=== PATIENT | male | born 1935 | race Caucasian/White ===

== ENCOUNTER 2017-05-31 14:33 | Inpatient (IN) | payer MEDICARE ==
[~2017-05-31] VITALS: Ht 172.7 cm; Wt 81.7 kg
[2017-05-31 14:37] VITALS: BP 155/68; PULSE 51; RESP 14; TEMP 98.2; O2SAT 95
[2017-05-31] MEDS ORDERED: SODIUM CHLORIDE 0.9% FLUSH 10 ML FLUSH IVF PRN (15:00)
--- NOTE | 2017-05-31 15:12 | RADRPT ---
EXAM DATE/TIME: 05/31/2017 15:00 [facility] COMPARISON: No previous studies available for comparison. INDICATIONS : Cough and dizziness. MEDICAL HISTORY : Hypertension. SURGICAL HISTORY : CABG. ENCOUNTER: Initial ACUITY: 3 days PAIN SCORE: 0/10 LOCATION: Bilateral chest FINDINGS: Questionable minimal left lung base atelectasis and/or infiltrate is seen. There is no appreciable p leural effusion for technique. Heart and mediastinum are unremarkable. There is evidence for prior median sternotomy. CONCLUSION: Questionable minimal left lung base atelectasis and/or infiltrate. Sukhi Merlos MD on May 31, 2017 at 15:08 Board Certified Radiologist. This report was verified electronically.
[2017-05-31 15:26] LABS: AUTOMATED NEUTROPHIL # 7.3 TH/MM3 (1.8-7.7); BASOPHIL % 0.4 % (0.0-2.0); EOSINOPHIL # 0.1 TH/MM3 (0-0.4); EOSINOPHIL % 1.1 % (0.0-4.0); HEMATOCRIT 43.3 % (39.0-51.0); LYMPH % 13.8 % (9.0-44.0); LYMPHOCYTE # 1.3 TH/MM3 (1.0-4.8); MEAN CORPUSCULAR HGB CONC 34.7 % (32.0-36.0); MEAN PLATELET VOLUME 9.4 FL (7.0-11.0); MONO % 8.7 % (0.0-8.0); MONOCYTE # 0.8 TH/MM3 (0-0.9); PLATELET COUNT 288 TH/MM3 (150-450); RED BLOOD COUNT 4.56 MIL/MM3 (4.50-5.90); WHITE BLOOD COUNT 9.7 TH/MM3 (4.0-11.0)
--- NOTE | 2017-05-31 15:26 | PD ---
HPI Chief Complaint: Neuro Symptoms/ Deficits Time Seen by Provider: 14:47 Travel History International Travel<30 days: No Contact w/Intl Traveler<30days: No Traveled to known affect area: No History of Present Illness HPI 82 year old male presents to the emergency department for evaluation of an episode of dizziness and confusion that occurred this morning. According to family at bedside as well as the patient, he woke up around 6:30 this morning and felt dizzy. He states that he felt lightheaded. His states that his legs were weak and he had trouble standing. He then laid back down and woke up again around 7:30. His states that he started messing with the sheets and said that she told him to change the sheets, which she did not. She states that he went to the living room and sat down and looked "dazed" but would answer questions appropriately. The patient denies any symptoms at this time. No headache. No fevers or chills. No chest pain or shortness of breath. No abdominal pain. Do not take, vomiting, diarrhea. No weakness or syncope. Apparently, he took Tamiflu last week to prevent the flu after being exposed to. He was on a Z-Bobby for bronchitis which he took his last dose today. Moderate severity. No exacerbating or alleviating factors. PFSH Past Medical History Atrial Fibrillation: Yes High Cholesterol: Yes Genitourinary: Yes (BPH ) Hypertension: Yes Influenza Vaccination: Yes Past Surgical History Coronary Artery Bypass Graft: Yes (X 2 ) Eye Surgery: Yes (BILATERAL CATARACTS) Social History Alcohol Use: Yes (VODKA DAILY) Tobacco Use: No (QUIT 26 YEARS AGO) Substance Use: No Allergies-Medications (Allergen,Severity, Reaction): Coded Allergies: No Known Allergies (Unverified , 05/31/17) Review of Systems Except as stated in HPI: all other systems reviewed are Neg Physical Exam Narrative GENERAL: Well-nourished, well-developed elderly male patient, afebrile. Patient is alert and oriented to person, place, time. SKIN: Focused skin assessment warm/dry. HEAD: Normocephalic. Atraumatic. ENT: Mucosa pink and moist. No erythema or exudates. No uvular edema. No uvular , palatal, or tonsillar deviation. Airway patent. Nasal turbinates appear normal without nasal blood, purulent drainage or septal hematoma. Bilateral tympanic membranes are clear without erythema or perforation. EYES: No scleral icterus. No injection or drainage. PERRLA. EOM intact. NECK: Supple, trachea midline. No JVD or lymphadenopathy. CARDIOVASCULAR: Regular rate and rhythm without murmurs, gallops, or rubs. Bilateral radial and pedal pulses are 2+. RESPIRATORY: Breath sounds equal bilaterally. No accessory muscle use. Lungs sounds are clear to auscultation. GASTROINTESTINAL: Abdomen soft, non-tender, nondistended. MUSCULOSKELETAL: No cyanosis, or edema. Bilateral upper and lower extremity strength 5/5. All extremities are neurovascularly intact. BACK: Nontender without obvious deformity. No CVA tenderness. NEUROLOGICAL: Awake and alert. Cranial nerves II through XII intact. Motor and sensory grossly within normal limits. Five out of 5 muscle strength in all muscle groups. Normal speech. Finger to nose is normal bilaterally. Heel-to- boles is normal bilaterally. Data Data Last Documented VS Vital Signs Date Time Temp Pulse Resp B/P (MAP) Pulse Ox O2 Delivery O2 Flow Rate FiO2 05/31/17 15:00 Room Air 05/31/17 14:37 98.2 51 14 155/68 (97) 95 Orders Orders Electrocardiogram (05/31/17 14:55) Prothrombin Time / Inr (Pt) (05/31/17 14:55) Act Partial Throm Time (Ptt) (05/31/17 14:55) Complete Blood Count With Diff (05/31/17 14:55) Comprehensive Metabolic Panel (05/31/17 14:55) Urinalysis - C+S If Indicated (05/31/17 14:55) Ct Brain W/O Iv Contrast(Rout) (05/31/17 14:55) Chest, Single Ap (05/31/17 14:55) Ecg Monitoring (05/31/17 14:55) Iv Access Insert/Monitor (05/31/17 14:55) Oximetry (05/31/17 14:55) Sodium Chloride 0.9% Flush (Ns Flush) (05/31/17 15:00) Magnesium (Mg) (05/31/17 14:55) Influenzae A/B Antigen (05/31/17 16:23) Azithromycin Inj (Zithromax Inj) (05/31/17 16:30) Ceftriaxone Inj (Rocephin Inj) (05/31/17 16:30) Admit Order (Ed Use Only) (05/31/17 16:29) Labs Laboratory Tests Test 05/31/17 15:08 05/31/17 16:10 White Blood Count 9.7 TH/MM3 Red Blood Count 4.56 MIL/MM3 Hemoglobin 15.0 GM/DL Hematocrit 43.3 % Mean Corpuscular Volume 95.0 FL Mean Corpuscular Hemoglobin 33.0 PG Mean Corpuscular Hemoglobin Concent 34.7 % Red Cell Distribution Width 13.0 % Platelet Count 288 TH/MM3 Mean Platelet Volume 9.4 FL Neutrophils (%) (Auto) 76.0 % Lymphocytes (%) (Auto) 13.8 % Monocytes (%) (Auto) 8.7 % Eosinophils (%) (Auto) 1.1 % Basophils (%) (Auto) 0.4 % Neutrophils # (Auto) 7.3 TH/MM3 Lymphocytes # (Auto) 1.3 TH/MM3 Monocytes # (Auto) 0.8 TH/MM3 Eosinophils # (Auto) 0.1 TH/MM3 Basophils # (Auto) 0.0 TH/MM3 CBC Comment DIFF FINAL Differential Comment Prothrombin Time 10.7 SEC Prothromb Time International Ratio 1.1 RATIO Activated Partial Thromboplast Time 29.7 SEC Blood Urea Nitrogen 14 MG/DL Creatinine 0.83 MG/DL Random Glucose 103 MG/DL Total Protein 7.5 GM/DL Albumin 3.4 GM/DL Calcium Level 8.5 MG/DL Magnesium Level 2.1 MG/DL Alkaline Phosphatase 87 U/L Aspartate Amino Transf (AST/SGOT) 15 U/L Alanine Aminotransferase (ALT/SGPT) 18 U/L Total Bilirubin 0.6 MG/DL Sodium Level 139 MEQ/L Potassium Level 4.1 MEQ/L Chloride Level 107 MEQ/L Carbon Dioxide Level 26.8 MEQ/L Anion Gap 5 MEQ/L Estimat Glomerular Filtration Rate 89 ML/MIN Urine Color YELLOW Urine Turbidity CLEAR Urine pH 5.5 Urine Specific [place] 1.028 Urine Protein TRACE mg/dL Urine Glucose (UA) NEG mg/dL Urine Ketones 10 mg/dL Urine Occult Blood NEG Urine Nitrite NEG Urine Bilirubin NEG Urine Urobilinogen LESS THAN 2.0 MG/DL Urine Leukocyte Esterase NEG Urine RBC 1 /hpf Urine WBC 1 /hpf Urine Mucus FEW /lpf Microscopic Urinalysis Comment CATH-CULT NOT IND MDM Medical Decision Making Medical Screen Exam Complete: Yes Emergency Medical Condition: Yes Medical Record Reviewed: Yes Interpretation(s) chest x-ray - CONCLUSION: Questionable minimal left lung base atelectasis and/or infiltrate. CT brain - CONCLUSION: Slight atrophic and small vessel ischemic changes without any evidence for acute hemorrhage or mass effect. Differential Diagnosis Vertigo versus TIA versus electrolyte abnormality versus intracranial abnormality versus pneumonia Narrative Course 82-year-old male presents to the emergency department for evaluation of a episode of dizziness and confusion this morning. EKG shows sinus bradycardia, heart rate 53, prolonged QT interval. CBC, CMP, magnesium, PTT, PT/INR, UA, CT of the brain, chest x-ray are ordered and pending. CBC shows no acute abnormality. CMP is unremarkable. Magnesium is 2.1. Coags are unremarkable. UA [-]. CT of the brain shows slight atrophic and small vessel ischemic changes without any evidence for acute hemorrhage or mass effect.. Chest x-ray shows questionable minimal left lung base atelectasis and/ or infiltrate. Patient is given azithromycin 500mg IV, Rocephin 1 gm IV for possible pneumonia. Family is insistent that patient is not acting himself and is not at his baseline. They are concerned of TIA. My attending physician, Dr. Elam, examined patient as well and recommends admission. Dr. Thurman accepted admission. Diagnosis Primary Impression: Altered mental status Qualified Codes: R41.82 - Altered mental status, unspecified Admitting Information Admitting Physician Requests: Trisha Osborn May 31, 2017 15:26
--- NOTE | 2017-05-31 15:29 | RADRPT ---
EXAM DATE/TIME: 05/31/2017 15:09 [facility] COMPARISON: No previous studies available for comparison. INDICATIONS : Dizziness and confusion today. RADIATION DOSE: 56.35 CTDIvol (mGy) MEDICAL HISTORY : None SURGICAL HISTORY : None. ENCOUNTER: Initial ACUITY: 1 day PAIN SCALE: 0/10 LOCATION: Bilateral head TECHNIQUE: Multiple contiguous axial images were obtained of the head. Using automated exposure control and adj ustment of the mA and/or kV according to patient size, radiation dose was kept as low as reasonably a chievable to obtain optimal diagnostic quality images. DICOM format image data is available electro nically for review and comparison. FINDINGS: There is no evidence for intracranial hemorrhage, mass effect, mass lesions, or edema. The visualize d bony structures appear intact. Slight degree of brain atrophy is seen. Slight periventricular whit e matter changes are seen nonspecific mostly consistent with chronic small vessel ischemic changes. There are no signs of acute infarction for technique. CONCLUSION: Slight atrophic and small vessel ischemic changes without any evidence for acute hemorrhage or mass effect. Sukhi Merlos MD on May 31, 2017 at 15:25 Board Certified Radiologist. This report was verified electronically.
[2017-05-31 15:38] LABS: INTERNATIONAL NORMALIZED RATIO 1.1 RATIO; PROTHROMBIN TIME - PATIENT 10.7 SEC (9.8-11.6)
[2017-05-31 15:47] LABS: ALBUMIN 3.4 GM/DL (3.4-5.0); ALT (GPT) 18 U/L (12-78); AST (GOT) 15 U/L (15-37); BICARBONATE 26.8 MEQ/L (21.0-32.0); BLOOD UREA NITROGEN 14 MG/DL (7-18); CALCIUM 8.5 MG/DL (8.5-10.1); CHLORIDE 107 MEQ/L (98-107); CREATININE 0.83 MG/DL (0.60-1.30); GLOMERULAR FILTRATION RATE 89 ML/MIN (>89); GLUCOSE,RANDOM 103 MG/DL (74-106); MAGNESIUM 2.1 MG/DL (1.5-2.5); SODIUM (NA) 139 MEQ/L (136-145)
[2017-05-31 15:49] LABS: ALKALINE PHOSPHATASE 87 U/L (45-117); TOTAL BILIRUBIN ADULT 0.6 MG/DL (0.2-1.0); TOTAL PROTEIN 7.5 GM/DL (6.4-8.2)
--- NOTE | 2017-05-31 16:09 | PD ---
Physical Exam Narrative I, Dr. Elam, have reviewed the advance practice practitioner's documentation and am in agreement, met with the patient face to face, made the diagnosis, and the medical decision making was done by me. *My assessment and Findings: 82yo M brought here by family for confusion. said he was pulling the sheets and not acting like himself. Labs reviewed, no leukocytosis. H/H normal. CMP unremarkable. CXR showed questionable minimal left lung base. Atelectasis and/or infiltrate. Pt have been coughing so will cover with antibiotics. CT brain showed slight atrophic and small vessel ischemic changes without any evidence for acute hemorrhage or mass effect. Pt is AAOx3 but still not back to baseline as per family. Will admit for altered mental status workup. Data Data Last Documented VS Vital Signs Date Time Temp Pulse Resp B/P (MAP) Pulse Ox O2 Delivery O2 Flow Rate FiO2 05/31/17 15:00 Room Air 05/31/17 14:37 98.2 51 14 155/68 (97) 95 Orders Orders Electrocardiogram (05/31/17 14:55) Prothrombin Time / Inr (Pt) (05/31/17 14:55) Act Partial Throm Time (Ptt) (05/31/17 14:55) Complete Blood Count With Diff (05/31/17 14:55) Comprehensive Metabolic Panel (05/31/17 14:55) Urinalysis - C+S If Indicated (05/31/17 14:55) Ct Brain W/O Iv Contrast(Rout) (05/31/17 14:55) Chest, Single Ap (05/31/17 14:55) Ecg Monitoring (05/31/17 14:55) Iv Access Insert/Monitor (05/31/17 14:55) Oximetry (05/31/17 14:55) Sodium Chloride 0.9% Flush (Ns Flush) (05/31/17 15:00) Magnesium (Mg) (05/31/17 14:55) Influenzae A/B Antigen (05/31/17 16:23) Azithromycin Inj (Zithromax Inj) (05/31/17 16:30) Ceftriaxone Inj (Rocephin Inj) (05/31/17 16:30) Admit Order (Ed Use Only) (05/31/17 16:29) Labs Laboratory Tests Test 05/31/17 15:08 05/31/17 16:10 White Blood Count 9.7 TH/MM3 Red Blood Count 4.56 MIL/MM3 Hemoglobin 15.0 GM/DL Hematocrit 43.3 % Mean Corpuscular Volume 95.0 FL Mean Corpuscular Hemoglobin 33.0 PG Mean Corpuscular Hemoglobin Concent 34.7 % Red Cell Distribution Width 13.0 % Platelet Count 288 TH/MM3 Mean Platelet Volume 9.4 FL Neutrophils (%) (Auto) 76.0 % Lymphocytes (%) (Auto) 13.8 % Monocytes (%) (Auto) 8.7 % Eosinophils (%) (Auto) 1.1 % Basophils (%) (Auto) 0.4 % Neutrophils # (Auto) 7.3 TH/MM3 Lymphocytes # (Auto) 1.3 TH/MM3 Monocytes # (Auto) 0.8 TH/MM3 Eosinophils # (Auto) 0.1 TH/MM3 Basophils # (Auto) 0.0 TH/MM3 CBC Comment DIFF FINAL Differential Comment Prothrombin Time 10.7 SEC Prothromb Time International Ratio 1.1 RATIO Activated Partial Thromboplast Time 29.7 SEC Blood Urea Nitrogen 14 MG/DL Creatinine 0.83 MG/DL Random Glucose 103 MG/DL Total Protein 7.5 GM/DL Albumin 3.4 GM/DL Calcium Level 8.5 MG/DL Magnesium Level 2.1 MG/DL Alkaline Phosphatase 87 U/L Aspartate Amino Transf (AST/SGOT) 15 U/L Alanine Aminotransferase (ALT/SGPT) 18 U/L Total Bilirubin 0.6 MG/DL Sodium Level 139 MEQ/L Potassium Level 4.1 MEQ/L Chloride Level 107 MEQ/L Carbon Dioxide Level 26.8 MEQ/L Anion Gap 5 MEQ/L Estimat Glomerular Filtration Rate 89 ML/MIN Urine Color YELLOW Urine Turbidity CLEAR Urine pH 5.5 Urine Specific [place] 1.028 Urine Protein TRACE mg/dL Urine Glucose (UA) NEG mg/dL Urine Ketones 10 mg/dL Urine Occult Blood NEG Urine Nitrite NEG Urine Bilirubin NEG Urine Urobilinogen LESS THAN 2.0 MG/DL Urine Leukocyte Esterase NEG Urine RBC 1 /hpf Urine WBC 1 /hpf Urine Mucus FEW /lpf Microscopic Urinalysis Comment CATH-CULT NOT IND MDM Supervised Visit with HARJIT: Yes Interpretation(s) EKG: Sinus bradycardia at 53bpm. Normal axis. QTc mildly prolong at 488ms. TWI V2. Diagnosis Primary Impression: Altered mental status Qualified Codes: R41.82 - Altered mental status, unspecified Admitting Information Admitting Physician Requests: Janna Khalil DO May 31, 2017 16:09
[2017-05-31 16:29] LABS: BILIRUBIN, URINE NEG (NEG); BLOOD, URINE NEG (NEG); GLUCOSE,URINE NEG (NEG); KETONE, URINE 10 mg/dL (NEG); MUCUS URINE FEW /lpf (OCC); NITRITE,URINE NEG (NEG); PH, URINE 5.5 (5.0-8.5); URINE COLOR YELLOW (YELLW/STRAW); URINE LEUKOCYTE ESTERASE NEG (NEG)
[2017-05-31] MEDS ORDERED: cefTRIAXone INJ 1,000 MG in SODIUM CHLORIDE 0.9% INJ 100 ML IV ONE (16:30)
[2017-05-31] MEDS ORDERED: AZITHROMYCIN INJ 500 MG in SODIUM CHLOR 0.9% 250 ML INJ 250 ML IV ONE (16:30)
[2017-05-31] MEDS ORDERED: SODIUM CHLOR 0.9% 1000 ML INJ 1,000 ML IV ONE (17:15)
--- NOTE | 2017-05-31 17:43 | HHI.HP ---
[facility] Colt Rachel MD Admission Diagnosis AMS Diagnoses: (1) Altered mental status Diagnosis: Principal Chief Complaint: altered mental status Travel History International Travel<30 Days: No Contact w/Intl Traveler <30 Da: No Traveled to Known Affected Are: No History of Present Illness 82 year old male with history of CAD, hypertension presents to the emergency department for evaluation of an episode of dizziness and confusion that occurred this morning. According to family at bedside as well as the patient, he woke up around 6:30 this morning and felt dizzy. He states that he felt lightheaded. His states that his legs were weak and he had trouble standing. He then laid back down and woke up again around 7:30. His states that he started messing with the sheets and said that she told him to change the sheets, which she did not. the family say that he was recently diagnosed with the flu and just finished the course of Zithromax today. he denies any fever or chills but per the family he hasn't been eating well the past few days.there's no report of focal weakness, slurred speech or headache. Review of Systems Constitutional: DENIES: Fever, Weight loss, Chills, Night Sweats Eyes: DENIES: Blurred vision, Diplopia, Vision loss, Double Vision Ears, nose, mouth, throat: DENIES: Tinnitus, Vertigo, Throat pain, Epistaxis Respiratory: DENIES: Apneas, Cough, Snoring, Wheezing, Hemoptysis, Sputum production, Shortness of breath Cardiovascular: DENIES: Chest pain, Palpitations, Syncope, Dyspnea on Exertion , PND, Lower Extremity Edema, Orthopnea, Claudication Gastrointestinal: DENIES: Abdominal pain, Black stools, Bloody stools, Constipation, Diarrhea, Nausea, Vomiting, Difficulty Swallowing, Anorexia Genitourinary: DENIES: Urinary frequency, Urgency, Hematuria, Dysuria Musculoskeletal: DENIES: Joint pain, Muscle aches, Stiffness, Joint Swelling Integumentary: DENIES: Rash Neurologic: COMPLAINS OF: Abnormal gait, DENIES: Headache, Localized weakness, Paresthesias, Seizures, Speech Problems, Tremor, Poor Balance Psychiatric: COMPLAINS OF: Confusion, DENIES: Anxiety, Mood changes, Depression , Hallucinations, Agitation, Suicidal Ideation, Homicidal Ideation, Delusions Past Family Social History Past Medical History CAD/ hypertension/ dyslipidemia Past Surgical History CABG Reported Medications aspirin/metoprolol/statin/benazepril Allergies: Coded Allergies: No Known Allergies (Unverified , 05/31/17) Active Ordered Medications Inpatient Medications Azithromycin 500 mg/Sodium Chloride 250 ml @ 250 mls/hr ONCE ONCE IV ; Start 05/31/17 at 16:30; Stop 05/31/17 at 17:29 Ceftriaxone Sodium 1000 mg/ Sodium Chloride 100 ml @ 200 mls/hr ONCE ONCE IV Last administered on 05/31/17at 16:50; Start 05/31/17 at 16:30; Stop 05/31/17 at 16: 59; Status DC Sodium Chloride (NS Flush) 2 ml UNSCH PRN IVF FLUSH AFTER USING IV ACCESS; Start 05/31/17 at 15:00 Social History doesn't smoke. drinks occasionally. Physical Exam Vital Signs Vital Signs Date Time Temp Pulse Resp B/P (MAP) Pulse Ox O2 Delivery O2 Flow Rate FiO2 05/31/17 15:00 Room Air 05/31/17 14:37 98.2 51 14 155/68 (97) 95 Room Air Physical Exam GENERAL: This is a well-nourished, well-developed patient, in no apparent distress. SKIN: No rashes, ecchymoses or lesions. Cool and dry. HEAD: Atraumatic. Normocephalic. No temporal or scalp tenderness. EYES: Pupils equal round and reactive. Extraocular motions intact. No scleral icterus. No injection or drainage. ENT: Nose without bleeding, purulent drainage or septal hematoma. Throat without erythema, tonsillar hypertrophy or exudate. Uvula midline. Airway patent. NECK: Trachea midline. No JVD or lymphadenopathy. Supple, nontender, no meningeal signs. CARDIOVASCULAR: Regular rate and rhythm without murmurs, gallops, or rubs. RESPIRATORY: Clear to auscultation. Breath sounds equal bilaterally. No wheezes , rales, or rhonchi. GASTROINTESTINAL: Abdomen soft, non-tender, nondistended. No hepato-splenomegaly , or palpable masses. No guarding. MUSCULOSKELETAL: Extremities without clubbing, cyanosis, or edema. No joint tenderness, effusion, or edema noted. No calf tenderness. Negative Homans sign bilaterally. NEUROLOGICAL: Awake and alert. Cranial nerves II through XII intact. Motor and sensory grossly within normal limits. Five out of 5 muscle strength in all muscle groups. Normal speech. Laboratory Laboratory Tests Test 05/31/17 15:08 05/31/17 16:10 White Blood Count 9.7 Red Blood Count 4.56 Hemoglobin 15.0 Hematocrit 43.3 Mean Corpuscular Volume 95.0 Mean Corpuscular Hemoglobin 33.0 Mean Corpuscular Hemoglobin Concent 34.7 Red Cell Distribution Width 13.0 Platelet Count 288 Mean Platelet Volume 9.4 Neutrophils (%) (Auto) 76.0 Lymphocytes (%) (Auto) 13.8 Monocytes (%) (Auto) 8.7 Eosinophils (%) (Auto) 1.1 Basophils (%) (Auto) 0.4 Neutrophils # (Auto) 7.3 Lymphocytes # (Auto) 1.3 Monocytes # (Auto) 0.8 Eosinophils # (Auto) 0.1 Basophils # (Auto) 0.0 CBC Comment DIFF FINAL Differential Comment Prothrombin Time 10.7 Prothromb Time International Ratio 1.1 Activated Partial Thromboplast Time 29.7 Blood Urea Nitrogen 14 Creatinine 0.83 Random Glucose 103 Total Protein 7.5 Albumin 3.4 Calcium Level 8.5 Magnesium Level 2.1 Alkaline Phosphatase 87 Aspartate Amino Transf (AST/SGOT) 15 Alanine Aminotransferase (ALT/SGPT) 18 Total Bilirubin 0.6 Sodium Level 139 Potassium Level 4.1 Chloride Level 107 Carbon Dioxide Level 26.8 Anion Gap 5 Estimat Glomerular Filtration Rate 89 Urine Color YELLOW Urine Turbidity CLEAR Urine pH 5.5 Urine Specific [place] 1.028 Urine Protein TRACE Urine Glucose (UA) NEG Urine Ketones 10 Urine Occult Blood NEG Urine Nitrite NEG Urine Bilirubin NEG Urine Urobilinogen LESS THAN 2.0 Urine Leukocyte Esterase NEG Urine RBC 1 Urine WBC 1 Urine Mucus FEW Microscopic Urinalysis Comment CATH-CULT NOT IND Date/Time Source Procedure Growth Status 05/31/17 16:30 Nasal Aspirate Influenza Types A,B Antigen (JUAN CARLOS) - Final NEGATIVE FOR FLU A AND B ANTIGEN.... Complete Result Diagram: 05/31/17 1508 05/31/17 1508 Imaging Last Impressions Head CT 05/31/17 8225 Signed Impressions: Service Date/Time: Wednesday, May 31, 2017 15:09 - CONCLUSION: Slight atrophic and small vessel ischemic changes without any evidence for acute hemorrhage or mass effect. Sukhi Merlos MD Chest X-Ray 05/31/17 1455 Signed Impressions: Service Date/Time: Wednesday, May 31, 2017 15:00 - CONCLUSION: Questionable minimal left lung base atelectasis and/or infiltrate. Sukhi Merlos MD Caprini VTE Risk Assessment Caprini VTE Risk Assessment: Mod/High Risk (score >= 2) Caprini Risk Assessment Model Point Value = 1 Point Value = 2 Point Value = 3 Point Value = 5 Age 41-60 Minor surgery BMI > 25 kg/m2 Swollen legs Varicose veins or History of unexplained or recurrent spontaneous Oral contraceptives or hormone replacement Sepsis (< 1 month) Serious lung disease, including pneumonia (< 1 month) Abnormal pulmonary function Acute myocardial infarction Congestive heart failure (< 1 month) History of inflammatory bowel disease Medical patient at bed rest Age 61-74 Arthroscopic surgery Major open surgery (> 45 min) Laparoscopic surgery (> 45 min) Malignancy Confined to bed (> 72 hours) Immobilizing plaster cast Central venous access Age >= 75 History of VTE Family history of VTE Factor V Leiden Prothrombin [id number] Lupus anticoagulant Anticardiolipin antibodies Elevated serum homocysteine Heparin-induced thrombocytopenia Other congenital or acquired thrombophilia Stroke (< 1 month) Elective arthroplasty Hip, pelvis, or leg fracture Acute spinal cord injury (< 1 month) Prophylaxis Regimen Total Risk Factor Score Risk Level Prophylaxis Regimen 0-1 Low Early ambulation 2 Moderate Order ONE of the following: *Sequential Compression Device (SCD) *Heparin 5000 units SQ BID 3-4 Higher Order ONE of the following medications: *Heparin 5000 units SQ TID *Enoxaparin/Lovenox 40 mg SQ daily (WT < 150 kg, CrCl > 30 mL/min) *Enoxaparin/Lovenox 30 mg SQ daily (WT < 150 kg, CrCl > 10-29 mL/min) *Enoxaparin/Lovenox 30 mg SQ BID (WT < 150 kg, CrCl > 30 mL/min) AND/OR *Sequential Compression Device (SCD) 5 or more Highest Order ONE of the following medications: *Heparin 5000 units SQ TID (Preferred with Epidurals) *Enoxaparin/Lovenox 40 mg SQ daily (WT < 150 kg, CrCl > 30 mL/min) *Enoxaparin/Lovenox 30 mg SQ daily (WT < 150 kg, CrCl > 10-29 mL/min) *Enoxaparin/Lovenox 30 mg SQ BID (WT < 150 kg, CrCl > 30 mL/min) AND *Sequential Compression Device (SCD) Assessment and Plan Assessment and Plan A/P - acute encephalopathy/ generalized weakness likely due to dehydration CT head with no acute abnormality. continue with IV fluid . monitor on telemetry- check the carotid doppler. consult PT. -questionable LLL infiltrate- continue IV Rocephin- oxygen and neb treatment as needed. -CAD- s/p CABG; continue aspirin and metoprolol- will verify and resume the rest of home meds . -hypertension; resume metoprolol- will monitor and adjust the regimen as needed. -DVT prophylaxis with subq Lovenox. Discussed Condition With ER physician, the patient and his family. Problem Qualifiers (1) Altered mental status: Qualified Codes: R41.82 - Altered mental status, unspecified Brooke Rojas MD May 31, 2017 17:43
[2017-05-31] MEDS ORDERED: RESP: ALBUTEROL 1.25 MG/3 ML NEB (PRN) NEB (17:45)
[2017-05-31] MEDS ORDERED: METO50TA PO (18:25)
[2017-05-31] MEDS ORDERED: BENZ100 PO (18:25)
[2017-05-31] MEDS ORDERED: ASPI-516 CHEW (18:25)
[2017-05-31] MEDS ORDERED: BENA20TA PO (18:25)
[2017-05-31] MEDS ORDERED: ATOR40TA16 PO (18:25)
--- NOTE | 2017-05-31 18:34 | RADRPT ---
EXAM DATE/TIME: 05/31/2017 18:03 [facility] COMPARISON: No previous studies available for comparison. INDICATIONS : Transient ischemic attack. MEDICAL HISTORY : Hypertension. Hypercholesterolemia. Benign prostatic hyperplasia, (BPH) Glasses. Atrial fibrillation. Alcohol use. Gait problems. SURGICAL HISTORY : CABG. Bilateral cataract surgery. ENCOUNTER: Initial ACUITY: 1 day PAIN SCORE: 0/10 LOCATION: Bilateral neck PEAK SYSTOLIC VELOCITIES (cm/sec): ICA/CCA RATIO: Right: 1.1 Left: 1.4 ICA: Right: 91.9 Left: 78.4 CCA: Right: 84.9 Left: 56.7 ECA: Right: 84.2 Left: 103.1 VERTEBRAL: Right: 49.4 antegrade Left: 55.2 antegrade Elevated flow velocities and ICA/CCA ratios have been found to correlate with increased degrees of vessel stenosis, calculated as percentage of diameter relative to a normal segment of distal ICA/CCA FINDINGS: Antegrade flow is seen in both vertebral arteries. There is moderate atherosclerotic plaquing at the origin of both ICAs without any significant stenosis. CONCLUSION: No evidence for hemodynamically significant stenosis. Sukhi Merlos MD on May 31, 2017 at 18:32 Board Certified Radiologist. This report was verified electronically.
[2017-05-31 20:51] VITALS: BP 132/74; PULSE 56; RESP 17; TEMP 98.2; O2SAT 95
[2017-05-31 21:06] VITALS: O2SAT 94
[2017-05-31 23:00] VITALS: PULSE 50
[2017-05-31 23:14] VITALS: BP 156/75; PULSE 54; RESP 18; TEMP 98; O2SAT 95
[2017-06-01] VITALS (9 sets, daily range): BP systolic 155–177; BP diastolic 67–81; PULSE 49–72; RESP 18–20; TEMP 97.1–98.3; O2SAT 94–97
[2017-06-01] MEDS ORDERED: ASPIRIN EC 81 MG TABEC PO SCH (09:00)
[2017-06-01] MEDS ORDERED: ASPIRIN 325 MG TAB PO SCH (09:30)
[2017-06-01] MEDS: METOPROLOL TARTRATE 50 MG TAB PO SCH (09:40)
[2017-06-01] MEDS: ENOXAPARIN SODIUM 40 MG/0.4 ML SYRINGE SQ SCH (09:40)
--- NOTE | 2017-06-01 09:43 | HHI.PR ---
Subjective Remarks For questionable altered mental status and dizziness I spoke to patient's nurse who stated that patient has never been altered since his admission. I also spoke to physical therapist who examined patient yesterday and today and he stated that his symptoms are worsening. He stated that he is not able to get up or ambulate. Patient stated that his right sided weakness is getting worse. He is AAO 4 and able to give me appropriate history. He denies any back pain or dizziness with me. Denies any lightheadedness. Objective Vitals Vital Signs Date Time Temp Pulse Resp B/P (MAP) Pulse Ox O2 Delivery O2 Flow Rate FiO2 06/01/17 07:28 98.0 61 18 177/77 (110) 94 06/01/17 07:24 72 06/01/17 04:08 98.2 63 18 173/81 (111) 96 05/31/17 23:14 98.0 54 18 156/75 (102) 95 05/31/17 23:00 50 05/31/17 21:06 94 05/31/17 20:51 98.2 56 17 132/74 (93) 95 05/31/17 15:00 Room Air 05/31/17 14:37 98.2 51 14 155/68 (97) 95 Room Air I/O 05/31/17 05/31/17 05/31/17 06/01/17 06/01/17 06/01/17 07:00 15:00 23:00 07:00 15:00 23:00 Intake Total 100 ml 240 ml Balance 100 ml 240 ml Intake Oral 240 ml IV Total 100 ml # Voids 1 Result Diagram: 05/31/17 1508 05/31/17 1508 Objective Remarks GENERAL: in NAD CARDIOVASCULAR: Regular rate and rhythm without murmurs, gallops, or rubs. RESPIRATORY: Breath sounds equal bilaterally. No accessory muscle use. GASTROINTESTINAL: Abdomen soft, non-tender, nondistended. MUSCULOSKELETAL: No cyanosis, or edema. BACK: Nontender without obvious deformity. No CVA tenderness. NEURO AAO X 4. CN 2-12 intact. Sensation and strength is grossly intact. ? Imbalance/coordination in which patient unable to get up. Medications and IVs Current Medications Sodium Chloride (NS Flush) 2 ml UNSCH PRN IVF FLUSH AFTER USING IV ACCESS; Start 05/31/17 at 15:00 Azithromycin 500 mg/Sodium Chloride 250 ml @ 250 mls/hr ONCE ONCE IV ; Start 05/31/17 at 16:30; Stop 05/31/17 at 17:10; Status DC Ceftriaxone Sodium 1000 mg/ Sodium Chloride 100 ml @ 200 mls/hr ONCE ONCE IV Last administered on 05/31/17at 16:50; Start 05/31/17 at 16:30; Stop 05/31/17 at 16: 59; Status DC Ceftriaxone Sodium 1000 mg/ Sodium Chloride 100 ml @ 200 mls/hr Q24H IV ; Start 06/01/17 at 16:00 Sodium Chloride 1,000 ml @ 75 mls/hr [id number] ONCE IV Last administered on at 18:48; Start 05/31/17 at 17:15; Stop 06/01/17 at 06:34; Status DC Aspirin (Ecotrin Ec) 81 mg DAILY PO ; Start 06/01/17 at 09:00; Stop 06/01/17 at 09 :27; Status DC Metoprolol Tartrate (Lopressor) 50 mg DAILY PO ; Start 06/01/17 at 09:00 Albuterol Sulfate (Albuterol Neb) 1.25 mg Q6HR NEB PRN NEB SHORTNESS OF BREATH ; Start 05/31/17 at 17:45 Enoxaparin Sodium (Lovenox Inj) 40 mg Q24H SQ ; Start 06/01/17 at 09:00 Aspirin (Aspirin) 325 mg DAILY PO ; Start 06/01/17 at 09:30 A/P Problem List: (1) Altered mental status ICD Code: R41.82 - Altered mental status, unspecified Status: Acute Assessment and Plan This was a 82-year-old male who was admitted secondary to generalized weakness and questionable confusion Acute encephalopathy -This seems to resolve quickly. Right-sided weakness -Strength anderson he seems to be intact. Per physical therapist symptoms are worsening and he is unable to get up today. Per patient he feels more weak on the right side. -CT scan the brain was negative and carotid ultrasound did not show any hemodynamic compromise. -We'll get a stat MRI of the brain and MRA of the brain and neck. order ECHO. -Patient was taking baby aspirin at home will increase to full dose of aspirin. -Consult neurologist. questionable LLL infiltrate versus atelectasis -this is more due to atelectasis since patient is asymptomatic. Will discontinue antibiotics and monitor clinically. CAD- s/p CABG/hypertension -Continue home medication -DVT prophylaxis with subq Lovenox. Problem Qualifiers (1) Altered mental status: Qualified Codes: R41.82 - Altered mental status, unspecified Birgit Elmore MD Jun 01, 2017 09:43
[2017-06-01] MEDS ORDERED: GADODIAMIDE PF 287 MG/ML 20 ML VIAL (for RAD MRI) IVCONTRAST ONE (12:24)
--- NOTE | 2017-06-01 12:40 | RADRPT ---
EXAM DATE/TIME: 06/01/2017 12:13 [facility] COMPARISON: No previous studies available for comparison. INDICATIONS : Altered mental status. Right side weakness. MEDICAL HISTORY : Hypertension. Afib SURGICAL HISTORY : CABG ENCOUNTER: Initial ACUITY: 1 day PAIN SCORE: 0/10 LOCATION: cranial Please note a normal MRA of the brain does not entirely exclude the possibility of a small aneurysm, nor the possibility of distal intracranial vessel disease. TECHNIQUE: 3D time of flight MRA was performed. Source images, multiplanar STS MIP, and 3D volume MIP reconstru ctions were reviewed. FINDINGS: There is excellent visualization of the major intracranial arteries out to the second-order branch ve ssels. There is no evidence for aneurysm, vessel truncation or stenosis, and no evidence for vascula r malformation. Intraluminal irregularities of the distal posterior cerebral arteries. Small anterior communicating artery. Hypoplastic posterior communicating arteries. Vertebrobasilar junction normal. CONCLUSION: 1. Atherosclerotic changes. 2. No large vessel stenosis or aneurysm. Cyrus Snow MD on June 01, 2017 at 12:37 Board Certified Radiologist. This report was verified electronically.
--- NOTE | 2017-06-01 12:50 | RADRPT ---
EXAM DATE/TIME: 06/01/2017 12:13 [facility] COMPARISON: No previous studies available for comparison. INDICATIONS : Altered mental status. Right side weakness. MEDICAL HISTORY : Hypertension. Afib SURGICAL HISTORY : CABG ENCOUNTER: Initial ACUITY: 1 day PAIN SCORE: 0/10 LOCATION: cranial TECHNIQUE: Multiplanar, multisequence MRI of the brain was performed without contrast. FINDINGS: CEREBRUM: Abnormal high flair abnormality noted within the cortex of the parafalcine left frontal and parietal lobes. The ventricles are normal for age. No evidence of midline shift, mass lesion, hemorrhage. No extraaxial fluid collections are seen. The pituitary gland and suprasellar cistern are normal in co nfiguration. WHITE MATTER: No significant signal abnormalities are seen in the white matter. POSTERIOR FOSSA: The cerebellum and brainstem are intact. The 4th ventricle is midline. The cerebellopontine angle is unremarkable. The cerebellar tonsils are normal in position. DIFFUSION IMAGING: There is restricted diffusion seen in the left frontal parietal parafalcine lobes consistent with acu te infarctions. EXTRACRANIAL: The visualized portions of the orbits and paranasal sinuses are unremarkable. CONCLUSION: Acute infarcts along the left frontal parietal parafalcine regions consistent with anterior cerebral artery distribution. No midline shift or mass effect. Cyrus Snow MD on June 01, 2017 at 12:45 Board Certified Radiologist. This report was verified electronically.
--- NOTE | 2017-06-01 13:02 | RADRPT ---
EXAM DATE/TIME: 06/01/2017 12:13 [facility] COMPARISON: No previous studies available for comparison. INDICATIONS : Altered mental status. Right side weakness. CONTRAST: 16 cc Omniscan (gadodiamide) IV MEDICAL HISTORY : Hypertension. Afib. SURGICAL HISTORY : CABG ENCOUNTER: Initial ACUITY: 1 day PAIN SCORE: 0/10 LOCATION: cranial Percent stenosis is calculated using the diameter of the stenotic region over the diameter of the nor mal distal internal carotid artery. TECHNIQUE: Bolus infused MRA of the extracranial circulation was performed using a neurovascular coil. Post pro cessing was performed including rotating subvolume maximum intensity projections of each carotid gay ry, rotating full volume maximum intensity projections of both carotid arteries, sagittal and coronal sliding thin slab reformations of each carotid artery, and left oblique sliding thin slab reformatio n through the aortic arch to include the origin of the arch branch vessels. FINDINGS: AORTIC ARCH: There is a three vessel origin of the great vessels from the aorta. No evidence of ostial narrowing. RIGHT CAROTID: The common carotid artery is intact. Mild atherosclerotic changes within the origin of the right inte rnal carotid artery. No significant stenosis. The external carotid artery is intact. LEFT CAROTID: The common carotid artery is intact. Mild plaque within the origin of the left internal carotid arter y. No significant stenosis. The external carotid artery is intact. VERTEBRALS: The vertebral arteries have a symmetric diameter. No stenotic lesions are seen. CONCLUSION: 1. No significant carotid stenosis seen. Cyrus Snow MD on June 01, 2017 at 12:57 Board Certified Radiologist. This report was verified electronically.
--- NOTE | 2017-06-01 13:20 | EKG ---
Date Performed: 05/31/2017 Time Performed: 15:21:49 PTAGE: 82 years EKG: SINUS BRADYCARDIA PROLONGED QT INTERVAL ABNORMAL ECG NO PREVIOUS TRACING DOCTOR: Greg Snyder Interpretating Date/Time 06/01/2017 13:20:05
--- NOTE | 2017-06-01 14:18 | PD.CONS ---
History of Present Illness Service Neurology Consult Requested By medical Reason for Consult tia Primary Care Physician Colt Rachel MD History of Present Illness 82 year old male admitted for confusion. began over past 1-2 days. has had uri along with spouse. spouse and daughter noticed pt was not acting right, somewhat confused. pt denies any forde, vision loss. ct brain naicp. takes aspirin at home. no hx of stroke, tia. Review of Systems as above and admission hp Past Family Social History Past Medical History CAD/ hypertension/ dyslipidemia Past Surgical History CABG Reported Medications aspirin/metoprolol/statin/benazepril Allergies: Coded Allergies: No Known Allergies (Unverified , 05/31/17) Social History doesn't smoke. drinks occasionally. Review of Systems All other ROS: ROS reviewed as documented in chart Past Family Social History Allergies: Coded Allergies: No Known Allergies (Unverified , 05/31/17) Active Ordered Medications Current Medications Medications (Trade) Dose Ordered Sig/Meera Route Start Time Stop Time Status Last Admin (NS Flush) 2 ml UNSCH PRN IVF 05/31/17 15:00 (Lopressor) 50 mg DAILY PO 06/01/17 09:00 06/01/17 09:40 (Albuterol Neb) 1.25 mg Q6HR NEB PRN NEB 05/31/17 17:45 (Lovenox Inj) 40 mg Q24H SQ 06/01/17 09:00 06/01/17 09:40 (Aspirin) 325 mg DAILY PO 06/01/17 09:30 06/01/17 09:40 Exam I&O / VS Vital Signs Date Time Temp Pulse Resp B/P (MAP) Pulse Ox O2 Delivery O2 Flow Rate FiO2 06/01/17 11:29 97.8 57 18 155/67 (96) 94 06/01/17 07:28 98.0 61 18 177/77 (110) 94 06/01/17 07:24 72 06/01/17 04:08 98.2 63 18 173/81 (111) 96 05/31/17 23:14 98.0 54 18 156/75 (102) 95 05/31/17 23:00 50 05/31/17 21:06 94 05/31/17 20:51 98.2 56 17 132/74 (93) 95 05/31/17 15:00 Room Air 05/31/17 14:37 98.2 51 14 155/68 (97) 95 Room Air General: Alert and Oriented, No acute distress Eye: EOMI Respiratory: Non-labored respirations Neurologic: Alert, Oriented Psychiatric: Cooperative Exam Comments ox 3, dysfluency off/on during exam, follows, pleasant, eomi, ou 3-2mm, vff, face sym, no drift, neck supple, rt leg 2-3/5, rest 5/5 Review/Management Diagnosis/Plan: (1) Acute left ARIES ischemic stroke ICD Codes: I63.522 - Cerebral infarction due to unspecified occlusion or stenosis of left anterior cerebral artery Status: Acute Plan: left aries infarcts likely 2/2 atherosclerosis failed aspirin mra brain + intracranial atherosclerosis carotids nml recs aggrenox bid lovenox sub dvt dose f/u lipid panel permissive htn <200/100 p.t. may need inpt rehab d/w pt/spouse/daughter/medical (2) HTN (hypertension) ICD Codes: I10 - Essential (primary) hypertension Status: Chronic (3) Intracranial atherosclerosis ICD Codes: I67.2 - Cerebral atherosclerosis Status: Chronic Problem Qualifiers (1) HTN (hypertension): Qualified Codes: I10 - Essential (primary) hypertension Sai Blanco MD Jun 01, 2017 14:18
[2017-06-01] MEDS: BENZONATATE 100 MG CAP PO PRN ×2 (15:50→22:43)
[2017-06-01] MEDS ORDERED: cefTRIAXone INJ 1,000 MG in SODIUM CHLORIDE 0.9% INJ 100 ML IV SCH (16:00)
[2017-06-01 18:41] LABS: CHOLESTEROL 127 MG/DL (120-200); TRIGLYCERIDES 71 MG/DL (42-150)
[2017-06-01 19:06] LABS: CHOLESTEROL/ HDL RATIO 3.87 RATIO; HDL CHOLESTEROL 32.8 MG/DL (40.0-60.0); LDL CHOLESTEROL 80 MG/DL (0-99)
[2017-06-01] MEDS: DIPYRIDAMOLE/ASPIRIN 200 MG/25 MG CAP PO SCH (22:43)
[2017-06-01] MEDS: ACETAMINOPHEN 500 MG CPLT PO SCH ×2 (22:43→22:54)
[2017-06-02] VITALS (8 sets, daily range): BP systolic 149–193; BP diastolic 71–84; PULSE 55–70; RESP 18; TEMP 97.4–98.6; O2SAT 94–96
--- NOTE | 2017-06-02 05:13 | MG ---
cc: LAUREN SURESH MD Lab No: [id number] Date: 06/01/2017 Age: 82 Sex: M Race: DATE OF 1935 INDICATIONS 82-year-old with dizziness, confusion. FINDINGS 5-7 Hz posterior rhythm, 20-440 microvolts with superimposed beta frequencies followed by slowing delta intrusion with transition into drowsy state followed by Stage I sleep with vertex waves. Reasonably good arousal, background reactivity. Limited driving with photic stimulation. Noted be snoring during the recording. Single lead EKG showing sinus rhythm. INTERPRETATION Minimal encephalopathy in sleep state. Clinical correlation. Lauren Suresh MD MG/SSB /10:58 PM /5:07 AM
[2017-06-02] MEDS: DIPYRIDAMOLE/ASPIRIN 200 MG/25 MG CAP PO SCH ×2 (08:14→20:45)
[2017-06-02] MEDS: ACETAMINOPHEN 500 MG CPLT PO SCH ×2 (08:14→20:45)
[2017-06-02] MEDS: METOPROLOL TARTRATE 50 MG TAB PO SCH (08:15)
[2017-06-02] MEDS: ENOXAPARIN SODIUM 40 MG/0.4 ML SYRINGE SQ SCH (08:15)
--- NOTE | 2017-06-02 08:23 | HHI.PR ---
Review/Management Diagnosis/Plan: (1) Acute left ARIES ischemic stroke ICD Codes: I63.522 - Cerebral infarction due to unspecified occlusion or stenosis of left anterior cerebral artery Status: Acute Plan: left aries infarcts likely 2/2 atherosclerosis failed aspirin mra brain + intracranial atherosclerosis carotids nml recs leg stronger today low dose statin for intracranial athero and target ldl <70 aggrenox bid lovenox sub dvt dose permissive htn <200/100 inpt rehab vs d/c planning home with home p.t. d/w pt/spouse/daughter/medical (2) HTN (hypertension) ICD Codes: I10 - Essential (primary) hypertension Status: Chronic (3) Intracranial atherosclerosis ICD Codes: I67.2 - Cerebral atherosclerosis Status: Chronic Subjective Subjective Comments No acute events reported No headache No chest pain No dyspnea Active Medications Current Medications Medications (Trade) Dose Ordered Sig/Meera Route Start Time Stop Time Status Last Admin (NS Flush) 2 ml UNSCH PRN IVF 05/31/17 15:00 (Lopressor) 50 mg DAILY PO 06/01/17 09:00 06/01/17 09:40 (Albuterol Neb) 1.25 mg Q6HR NEB PRN NEB 05/31/17 17:45 (Lovenox Inj) 40 mg Q24H SQ 06/01/17 09:00 06/01/17 09:40 (Aggrenox 200-25 Mg) 1 cap Q12HR PO 06/01/17 21:00 06/01/17 22:43 (Tylenol) 500 mg BID PO 06/01/17 20:30 06/01/17 22:54 (Tessalon) 200 mg TID PRN PO 06/01/17 15:45 06/01/17 22:43 Allergies Allergies Coded Allergies No Known Allergies (Unverified05/31/17) Review of Systems All other ROS: ROS reviewed as documented in chart Exam I&O / VS Vital Signs Date Time Temp Pulse Resp B/P (MAP) Pulse Ox O2 Delivery O2 Flow Rate FiO2 06/02/17 08:07 94 06/02/17 08:00 98.6 59 18 157/80 (105) 94 06/02/17 04:37 97.4 57 18 157/75 (102) 94 06/02/17 03:56 56 06/02/17 00:47 97.7 55 18 176/84 (114) 95 06/01/17 20:37 98.3 56 18 167/79 (108) 94 06/01/17 20:00 59 06/01/17 16:50 97.1 57 20 166/76 (106) 97 06/01/17 16:44 50 06/01/17 15:11 49 06/01/17 11:29 97.8 57 18 155/67 (96) 94 General: Alert and Oriented, No acute distress Eye: EOMI Respiratory: Non-labored respirations Neurologic: Alert, Oriented Psychiatric: Cooperative Exam Comments ox 3, dysfluency off/on during exam, follows, pleasant, eomi, ou 3-2mm, vff, face sym, no drift, neck supple, rt leg 3/5, rest 5/5 Objective Micro and Labs Laboratory Tests Test 06/01/17 17:02 Erythrocyte Sedimentation Rate 32 Triglycerides Level 71 Cholesterol Level 127 LDL Cholesterol 80 HDL Cholesterol 32.8 Cholesterol/HDL Ratio 3.87 Vitamin B12 Level 543 Thyroid Stimulating Hormone 3rd Gen 1.440 Date/Time Source Procedure Growth Status 05/31/17 16:30 Nasal Aspirate Influenza Types A,B Antigen (JUAN CARLOS) - Final NEGATIVE FOR FLU A AND B ANTIGEN.... Complete Problem Qualifiers (1) HTN (hypertension): Qualified Codes: I10 - Essential (primary) hypertension Sai Blanco MD Jun 02, 2017 08:23
[2017-06-02] MEDS ORDERED: RESP: ALBUTEROL 2.5 MG/IPRATROPIUM 0.5 MG NEB (PRN) NEB (10:45)
[2017-06-02] MEDS ORDERED: ONDANSETRON HCL 4 MG/2 ML VIAL IV PUSH PRN (10:45)
[2017-06-02] MEDS ORDERED: ACETAMINOPHEN 325 MG TAB PO PRN (10:45)
[2017-06-02] MEDS ORDERED: ENALAPRILAT 2.5 MG/2 ML VIAL IV PUSH PRN (10:45)
[2017-06-02] MEDS ORDERED: CALCIUM CARBONATE 500 MG CHEWABLE TAB CHEW PRN (10:45)
--- NOTE | 2017-06-02 10:46 | HHI.PR ---
Subjective Remarks Follow acute left ARIES ischemic stroke 06/02/17-patient seen and examined; reports that right leg is getting stronger. NO acute event overnight and patient denies any shortness of breath Objective Vitals Vital Signs Date Time Temp Pulse Resp B/P (MAP) Pulse Ox O2 Delivery O2 Flow Rate FiO2 06/02/17 09:20 17 06/02/17 08:07 94 06/02/17 08:00 98.6 59 18 157/80 (105) 94 06/02/17 04:37 97.4 57 18 157/75 (102) 94 06/02/17 03:56 56 06/02/17 00:47 97.7 55 18 176/84 (114) 95 06/01/17 20:37 98.3 56 18 167/79 (108) 94 06/01/17 20:00 59 06/01/17 16:50 97.1 57 20 166/76 (106) 97 06/01/17 16:44 50 06/01/17 15:11 49 06/01/17 11:29 97.8 57 18 155/67 (96) 94 I/O 06/01/17 06/01/17 06/01/17 06/02/17 06/02/17 06/02/17 07:00 15:00 23:00 07:00 15:00 23:00 Intake Total 240 ml Output Total 500 ml 800 ml Balance 240 ml -500 ml -800 ml Intake Oral 240 ml Output Urine Total 500 ml 800 ml # Voids 1 Result Diagram: 05/31/17 1508 05/31/17 1508 Imaging Last Impressions Neck Magnetic Resonance Angiography 06/01/17 0000 Signed Impressions: Service Date/Time: Thursday, June 01, 2017 12:13 - CONCLUSION: 1. No significant carotid stenosis seen. Cyrus Snow MD Head Magnetic Resonance Angiography 06/01/17 0000 Signed Impressions: Service Date/Time: Thursday, June 01, 2017 12:13 - CONCLUSION: 1. Atherosclerotic changes. 2. No large vessel stenosis or aneurysm. Cyrus Snow MD Brain MRI 06/01/17 0000 Signed Impressions: Service Date/Time: Thursday, June 01, 2017 12:13 - CONCLUSION: Acute infarcts along the left frontal parietal parafalcine regions consistent with anterior cerebral artery distribution. No midline shift or mass effect. Cyrus Snow MD Head CT 05/31/17 1455 Signed Impressions: Service Date/Time: Wednesday, May 31, 2017 15:09 - CONCLUSION: Slight atrophic and small vessel ischemic changes without any evidence for acute hemorrhage or mass effect. Sukhi Merlos MD Chest X-Ray 05/31/17 1455 Signed Impressions: Service Date/Time: Wednesday, May 31, 2017 15:00 - CONCLUSION: Questionable minimal left lung base atelectasis and/or infiltrate. Sukhi Merlos MD Carotid Artery Ultrasound 05/31/17 0000 Signed Impressions: Service Date/Time: Wednesday, May 31, 2017 18:03 - CONCLUSION: No evidence for hemodynamically significant stenosis. Sukhi Merlos MD Objective Remarks GENERAL: NAD SKIN: Warm and dry. HEAD: Normocephalic. EYES: No scleral icterus. No injection or drainage. NECK: Supple, trachea midline. No JVD or lymphadenopathy. CARDIOVASCULAR: Regular rate and rhythm without murmurs, gallops, or rubs. RESPIRATORY: Breath sounds equal bilaterally. No accessory muscle use. GASTROINTESTINAL: Abdomen soft, non-tender, nondistended. MUSCULOSKELETAL: No cyanosis, or edema. Neuro: right LE weakness 4/5 BACK: Nontender without obvious deformity. No CVA tenderness. Procedures None A/P Problem List: (1) Acute left ARIES ischemic stroke ICD Code: I63.522 - Cerebral infarction due to unspecified occlusion or stenosis of left anterior cerebral artery Status: Acute (2) Altered mental status ICD Code: R41.82 - Altered mental status, unspecified Status: Resolved (3) HTN (hypertension) ICD Code: I10 - Essential (primary) hypertension Status: Chronic (4) Intracranial atherosclerosis ICD Code: I67.2 - Cerebral atherosclerosis Status: Chronic Assessment and Plan 82 years old man with Acute left ARIES ischemic Stroke Appreciate input from Neurology Currently Aggrenox BID, Lipitor PT/OT to treat Neuro check Q4H Hypertension On Lopressor Hyperlipidemia On Lipitor 40mg HS CAD Continue with Aggrenox, BB, Lipitor DVT prophylaxis: Lovenox Problem Qualifiers (1) Altered mental status: Qualified Codes: R41.82 - Altered mental status, unspecified (2) HTN (hypertension): Qualified Codes: I10 - Essential (primary) hypertension Cyrus Barnard MD Jun 02, 2017 10:46
[2017-06-02 15:57] LABS: HEMOGLOBIN A1C 5.6 % (4.3-6.0)
--- NOTE | 2017-06-02 17:03 | ECHRPT ---
Indication: CVA/TIA CONCLUSIONS Normal left ventricular size. Wall thickness is measured at the upper limits of normal. The left ventricular systolic function is hyperdynamic with an estimated ejection fraction in the ra nge of 65- 70%. The left atrial size is moderately dilated. The right atrial size is mildly dilated. No atrial level shunt is demonstrated by color flow Doppler interrogation. [id number] mitral valve regurgitation. Aortic valve sclerosis is present. Trace aortic valve regurgitation. There is trace tricuspid valve regurgitation. The inferior vena cava was not well visualized. BP: 177 / 77 HR: 72 Rhythm: Sinus MEASUREMENTS (Male / Female) Normal Values Technical Quality:Fair 2D ECHO LV Diastolic Diameter PLAX 3.8 cm 4.2 - 5.9 / 3.9 - 5.3 cm LV Systolic Diameter PLAX 2.6 cm IVS Diastolic Thickness 1.0 cm 0.6 - 1.0 / 0.6 - 0.9 cm LVPW Diastolic Thickness 1.0 cm 0.6 - 1.0 / 0.6 - 0.9 cm LV Relative Wall Thickness 0.5 RV Internal Dim ED PLAX 2.1 cm LVOT Diameter 2.1 cm Aortic Root Diameter 3.1 cm LA Systolic Diameter LX 3.3 cm 3.0 - 4.0 / 2.7 - 3.8 cm M-MODE AV Cusp Separation MM 1.7 cm DOPPLER AV Peak Velocity 193.0 cm/s AV Peak Gradient 14.9 mmHg AV Mean Gradient 6.0 mmHg AV Velocity Time Integral 34.0 cm LVOT Peak Velocity 91.0 cm/s LVOT Peak Gradient 3.3 mmHg LVOT Velocity Time Integral 18.8 cm AV Area Cont Eq vti 1.9 cm AV Area Cont Eq pk 1.6 cm Mitral E Point Velocity 56.8 cm/s Mitral A Point Velocity 65.2 cm/s Mitral E to A Ratio 0.9 LV E' Lateral Velocity 9.8 cm/s Mitral E to LV E' Lateral Ratio 5.8 LV E' Septal Velocity 3.8 cm/s Mitral E to LV E' Septal Ratio 14.9 PV Peak Velocity 73.7 cm/s PV Peak Gradient 2.2 mmHg FINDINGS LEFT VENTRICLE Normal left ventricular size. Wall thickness is measured at the upper limits of normal. The left ventricular systolic function is hyperdynamic with an estimated ejection fraction in the ra nge of 65- 70%. RIGHT VENTRICLE Normal right ventricular size and systolic function. LEFT ATRIUM The left atrial size is moderately dilated. RIGHT ATRIUM The right atrial size is mildly dilated. ATRIAL SEPTUM No atrial level shunt is demonstrated by color flow Doppler interrogation. AORTA The aortic root and proximal ascending aorta are normal in size on limited imaging. MITRAL VALVE [id number] mitral valve regurgitation. AORTIC VALVE Aortic valve sclerosis is present. Trace aortic valve regurgitation. TRICUSPID VALVE There is trace tricuspid valve regurgitation. PULMONARY VALVE No pulmonary valve regurgitation or stenosis. VESSELS The inferior vena cava was not well visualized. PERICARDIUM No pericardial effusion. Yordan Lee MD, FACC (Electronically Signed) Final Date:02 June 2017 17:02
[2017-06-02] MEDS: BENZONATATE 100 MG CAP PO PRN (17:48)
[2017-06-02] MEDS ORDERED: HUMIBIDDM PO (17:51)
[2017-06-02] MEDS: guaiFENesin E.R. 600 MG TAB PO SCH (20:45)
[2017-06-02] MEDS ORDERED: ATORVASTATIN 40 MG TAB PO SCH ×2 (21:00)
[2017-06-03] VITALS: BP 141/65; PULSE 66; RESP 18; TEMP 97.9; O2SAT 93
[2017-06-03 04:00] VITALS: BP 139/71; PULSE 76; RESP 18; TEMP 97.8; O2SAT 94
--- NOTE | 2017-06-03 07:48 | HHI.PR ---
Review/Management Diagnosis/Plan: (1) Acute left ARIES ischemic stroke ICD Codes: I63.522 - Cerebral infarction due to unspecified occlusion or stenosis of left anterior cerebral artery Status: Acute Plan: left aries infarcts likely 2/2 atherosclerosis failed aspirin mra brain + intracranial atherosclerosis carotids nml low dose statin for intracranial athero and target ldl <70 echo ef nml aggrenox bid recs motor continues to improve lovenox sub dvt dose permissive htn <200/100 inpt rehab vs d/c planning home with home p.t. as per my note from yesterday (2) HTN (hypertension) ICD Codes: I10 - Essential (primary) hypertension Status: Chronic (3) Intracranial atherosclerosis ICD Codes: I67.2 - Cerebral atherosclerosis Status: Chronic Subjective Subjective Comments No acute events reported No headache No chest pain No dyspnea Active Medications Current Medications Medications (Trade) Dose Ordered Sig/Meera Route Start Time Stop Time Status Last Admin (NS Flush) 2 ml UNSCH PRN IVF 05/31/17 15:00 (Lopressor) 50 mg DAILY PO 06/01/17 09:00 06/01/17 09:40 (Albuterol Neb) 1.25 mg Q6HR NEB PRN NEB 05/31/17 17:45 (Lovenox Inj) 40 mg Q24H SQ 06/01/17 09:00 06/02/17 08:15 (Aggrenox 200-25 Mg) 1 cap Q12HR PO 06/01/17 21:00 06/02/17 20:45 (Tylenol) 500 mg BID PO 06/01/17 20:30 06/02/17 20:45 (Tessalon) 200 mg TID PRN PO 06/01/17 15:45 06/02/17 17:48 (Tylenol) 650 mg Q4H PRN PO 06/02/17 10:45 (Zofran Inj) 4 mg Q6H PRN IV PUSH 06/02/17 10:45 (Tums Chew) 1,000 mg TID PRN CHEW 06/02/17 10:45 (Duoneb Neb) 1 ampule Q2HR NEB PRN NEB 06/02/17 10:45 (Vasotec Inj) 2.5 mg Q6H PRN IV PUSH 06/02/17 10:45 (Prinivil) 20 mg DAILY PO 06/03/17 09:00 (Lipitor) 40 mg HS PO 06/02/17 21:00 06/02/17 20:45 (Mucinex Er) 600 mg BID PO 06/02/17 21:00 06/02/17 20:45 Allergies Allergies Coded Allergies No Known Allergies (Unverified05/31/17) Review of Systems All other ROS: ROS reviewed as documented in chart Exam I&O / VS 06/03/17 06/03/17 06/04/17 15:00 23:00 07:00 # Voids 3 Vital Signs Date Time Temp Pulse Resp B/P (MAP) Pulse Ox O2 Delivery O2 Flow Rate FiO2 06/03/17 04:00 97.8 76 18 139/71 (93) 94 06/03/17 00:00 97.9 66 18 141/65 (90) 93 06/02/17 20:00 98.4 70 18 193/74 (113) 95 06/02/17 16:00 97.8 60 18 163/77 (105) 95 06/02/17 12:00 97.5 59 18 149/71 (97) 96 06/02/17 09:20 17 06/02/17 08:07 94 06/02/17 08:00 98.6 59 18 157/80 (105) 94 General: Alert and Oriented, No acute distress Eye: EOMI Respiratory: Non-labored respirations Neurologic: Alert, Oriented Psychiatric: Cooperative Exam Comments ox 3, dysfluency, follows, pleasant, eomi, ou 3-2mm, vff, face sym, no drift, neck supple, rt leg 3-4/5, rest 5/5 Objective Micro and Labs Date/Time Source Procedure Growth Status 05/31/17 16:30 Nasal Aspirate Influenza Types A,B Antigen (JUAN CARLOS) - Final NEGATIVE FOR FLU A AND B ANTIGEN.... Complete Problem Qualifiers (1) HTN (hypertension): Qualified Codes: I10 - Essential (primary) hypertension Sai Blanco MD Jun 03, 2017 07:48
[2017-06-03 08:00] VITALS: BP 155/95; PULSE 68; RESP 18; TEMP 98.2; O2SAT 94
[2017-06-03] MEDS ORDERED: LISINOPRIL 20 MG TAB PO SCH (09:00)
[2017-06-03 09:13] VITALS: PULSE 59
[2017-06-03] MEDS: DIPYRIDAMOLE/ASPIRIN 200 MG/25 MG CAP PO SCH (09:19)
[2017-06-03] MEDS: METOPROLOL TARTRATE 50 MG TAB PO SCH (09:19)
[2017-06-03] MEDS: guaiFENesin E.R. 600 MG TAB PO SCH (09:19)
[2017-06-03] MEDS: ACETAMINOPHEN 500 MG CPLT PO SCH (09:19)
[2017-06-03] MEDS: ENOXAPARIN SODIUM 40 MG/0.4 ML SYRINGE SQ SCH (09:21)
[2017-06-03 11:30] VITALS: O2SAT 94
[2017-06-03] MEDS ORDERED: AGGR20025 PO (11:59)
[2017-06-03 12:00] VITALS: BP 139/72; PULSE 62; RESP 18; TEMP 97.9; O2SAT 95
--- NOTE | 2017-06-03 13:01 | HHI.PR ---
Subjective Remarks Follow acute left ARIES ischemic stroke 06/02/17-patient seen and examined; reports that right leg is getting stronger. NO acute event overnight and patient denies any shortness of breath 06/03/17-patient seen and examined, denies any generalized weakness. Denies any chest pain or shortness of breath. No acute event overnight. Clear for discharge to [facility] Objective Vitals Vital Signs Date Time Temp Pulse Resp B/P (MAP) Pulse Ox O2 Delivery O2 Flow Rate FiO2 06/03/17 12:00 97.9 62 18 139/72 (94) 95 06/03/17 11:30 94 06/03/17 09:13 59 06/03/17 08:00 98.2 68 18 155/95 (115) 94 06/03/17 04:00 97.8 76 18 139/71 (93) 94 06/03/17 00:00 97.9 66 18 141/65 (90) 93 06/02/17 20:00 98.4 70 18 193/74 (113) 95 06/02/17 16:00 97.8 60 18 163/77 (105) 95 I/O 06/02/17 06/02/17 06/02/17 06/03/17 06/03/17 06/03/17 07:00 15:00 23:00 07:00 15:00 23:00 Output Total 800 ml 750 ml Balance -800 ml -750 ml Output Urine Total 800 ml 750 ml # Voids 3 # Bowel Movements 3 Result Diagram: 05/31/17 1508 05/31/17 1508 Imaging Last Impressions Neck Magnetic Resonance Angiography 06/01/17 0000 Signed Impressions: Service Date/Time: Thursday, June 01, 2017 12:13 - CONCLUSION: 1. No significant carotid stenosis seen. Cyrus Snow MD Head Magnetic Resonance Angiography 06/01/17 0000 Signed Impressions: Service Date/Time: Thursday, June 01, 2017 12:13 - CONCLUSION: 1. Atherosclerotic changes. 2. No large vessel stenosis or aneurysm. Cyrus Snow MD Brain MRI 06/01/17 0000 Signed Impressions: Service Date/Time: Thursday, June 01, 2017 12:13 - CONCLUSION: Acute infarcts along the left frontal parietal parafalcine regions consistent with anterior cerebral artery distribution. No midline shift or mass effect. Cyrus Snow MD Head CT 05/31/17 1455 Signed Impressions: Service Date/Time: Wednesday, May 31, 2017 15:09 - CONCLUSION: Slight atrophic and small vessel ischemic changes without any evidence for acute hemorrhage or mass effect. Sukhi Merlos MD Chest X-Ray 05/31/17 1455 Signed Impressions: Service Date/Time: Wednesday, May 31, 2017 15:00 - CONCLUSION: Questionable minimal left lung base atelectasis and/or infiltrate. Sukhi Merlos MD Carotid Artery Ultrasound 05/31/17 0000 Signed Impressions: Service Date/Time: Wednesday, May 31, 2017 18:03 - CONCLUSION: No evidence for hemodynamically significant stenosis. Sukhi Merlos MD Objective Remarks GENERAL: NAD SKIN: Warm and dry. HEAD: Normocephalic. EYES: No scleral icterus. No injection or drainage. NECK: Supple, trachea midline. No JVD or lymphadenopathy. CARDIOVASCULAR: Regular rate and rhythm without murmurs, gallops, or rubs. RESPIRATORY: Breath sounds equal bilaterally. No accessory muscle use. GASTROINTESTINAL: Abdomen soft, non-tender, nondistended. MUSCULOSKELETAL: No cyanosis, or edema. Neuro: right LE weakness 4/5 BACK: Nontender without obvious deformity. No CVA tenderness. Procedures None A/P Problem List: (1) Acute left ARIES ischemic stroke ICD Code: I63.522 - Cerebral infarction due to unspecified occlusion or stenosis of left anterior cerebral artery Status: Acute (2) Altered mental status ICD Code: R41.82 - Altered mental status, unspecified Status: Resolved (3) HTN (hypertension) ICD Code: I10 - Essential (primary) hypertension Status: Chronic (4) Intracranial atherosclerosis ICD Code: I67.2 - Cerebral atherosclerosis Status: Chronic Assessment and Plan 82 years old man with Acute left ARIES ischemic Stroke Appreciate input from Neurology Currently Aggrenox BID, Lipitor PT/OT to treat Clear for discharge to [facility] Neuro check Q4H Hypertension On Lopressor Hyperlipidemia On Lipitor 40mg HS CAD Continue with Aggrenox, BB, Lipitor DVT prophylaxis: Lovenox Problem Qualifiers (1) Altered mental status: Qualified Codes: R41.82 - Altered mental status, unspecified (2) HTN (hypertension): Qualified Codes: I10 - Essential (primary) hypertension Cyrus Barnard MD Jun 03, 2017 13:01
--- NOTE | 2017-06-03 13:03 | HHI.DS ---
Discharge Summary Admission Date Jun 01, 2017 at 14:36 Discharge Date: Jun 03, 2017 Admitting Diagnosis AMS (1) Acute left ARIES ischemic stroke ICD Code: I63.522 - Cerebral infarction due to unspecified occlusion or stenosis of left anterior cerebral artery Status: Acute (2) Altered mental status ICD Code: R41.82 - Altered mental status, unspecified Status: Resolved (3) HTN (hypertension) ICD Code: I10 - Essential (primary) hypertension Status: Chronic (4) Intracranial atherosclerosis ICD Code: I67.2 - Cerebral atherosclerosis Status: Chronic Procedures None Brief History - From Admission 82 year old male with history of CAD, hypertension presents to the emergency department for evaluation of an episode of dizziness and confusion that occurred this morning. According to family at bedside as well as the patient, he woke up around 6:30 this morning and felt dizzy. He states that he felt lightheaded. His states that his legs were weak and he had trouble standing. He then laid back down and woke up again around 7:30. His states that he started messing with the sheets and said that she told him to change the sheets, which she did not. the family say that he was recently diagnosed with the flu and just finished the course of Zithromax today. he denies any fever or chills but per the family he hasn't been eating well the past few days.there's no report of focal weakness, slurred speech or headache. CBC/BMP: 05/31/17 1508 05/31/17 1508 Significant Findings Laboratory Tests Test 05/31/17 15:08 05/31/17 16:10 06/01/17 17:02 Neutrophils (%) (Auto) 76.0 % (16.0-70.0) Monocytes (%) (Auto) 8.7 % (0.0-8.0) Urine Ketones 10 mg/dL (NEG) Urine Mucus FEW /lpf (OCC) Erythrocyte Sedimentation Rate 32 mm/hr (0-20) HDL Cholesterol 32.8 MG/DL (40.0-60.0) Imaging Last Impressions Neck Magnetic Resonance Angiography 06/01/17 0000 Signed Impressions: Service Date/Time: Thursday, June 01, 2017 12:13 - CONCLUSION: 1. No significant carotid stenosis seen. Cyrus Snow MD Head Magnetic Resonance Angiography 06/01/17 Signed Impressions: Service Date/Time: Thursday, June 01, 2017 12:13 - CONCLUSION: 1. Atherosclerotic changes. 2. No large vessel stenosis or aneurysm. Cyrus Snow MD Brain MRI 06/01/17 Signed Impressions: Service Date/Time: Thursday, June 01, 2017 12:13 - CONCLUSION: Acute infarcts along the left frontal parietal parafalcine regions consistent with anterior cerebral artery distribution. No midline shift or mass effect. Cyrus Snow MD Head CT 05/31/171454 Signed Impressions: Service Date/Time: Wednesday, May 31, 2017 15:09 - CONCLUSION: Slight atrophic and small vessel ischemic changes without any evidence for acute hemorrhage or mass effect. Sukhi Merlos MD Chest X-Ray 05/31/17 145 Signed Impressions: Service Date/Time: Wednesday, May 31, 2017 15:00 - CONCLUSION: Questionable minimal left lung base atelectasis and/or infiltrate. Sukhi Merlos MD Carotid Artery Ultrasound 05/31/17 Signed Impressions: Service Date/Time: Wednesday, May 31, 2017 18:03 - CONCLUSION: No evidence for hemodynamically significant stenosis. Sukhi Merlos MD PE at Discharge GENERAL: NAD SKIN: Warm and dry. HEAD: Normocephalic. EYES: No scleral icterus. No injection or drainage. NECK: Supple, trachea midline. No JVD or lymphadenopathy. CARDIOVASCULAR: Regular rate and rhythm without murmurs, gallops, or rubs. RESPIRATORY: Breath sounds equal bilaterally. No accessory muscle use. GASTROINTESTINAL: Abdomen soft, non-tender, nondistended. MUSCULOSKELETAL: No cyanosis, or edema. Neuro: right LE weakness 4/5 BACK: Nontender without obvious deformity. No CVA tenderness. Hospital Course While in hospital, patient was treated for: Acute left ARIES ischemic Stroke Appreciated input from Neurology Treated with Aggrenox BID, Lipitor PT/OT to treat Neuro check Q4H Hypertension Treated with Lopressor Hyperlipidemia Treated with Lipitor 40mg HS CAD Treated with Aggrenox, BB, Lipitor DVT prophylaxis: Lovenox Pt Condition on Discharge: Good Discharge Disposition: Rehab Inpatient Discharge Time: > 30 minutes Discharge Instructions DIET: Follow Instructions for: Heart Healthy Diet Speech Therapy-Diet Recommends: Regular Activities you can perform: Regular-No Restrictions Follow up Referrals: Neurology PCP Follow-up - 2-3 Days New Medications: Dipyridamole-Aspirin (Aggrenox) 200-25 Mg Cap 1 CAP PO Q12HR for Prevent Blood Clot, #60 CAP 11 Refills Continued Medications: Atorvastatin (Atorvastatin) 40 Mg Tab 40 MG PO HS for Cholesterol Management, #30 TAB 0 Refills Benazepril (Benazepril) 20 Mg Tab 20 MG PO DAILY for Blood Pressure Management, #30 TAB 0 Refills Benzonatate (Tessalon Perles) 100 Mg Cap 100 MG PO TID PRN for COUGH, CAP 0 Refills Dextromethorphan-Guaifenesin (Mucinex DM) 30-600 Mg Tab 2 TAB PO BID PRN for CHEST CONGESTION AND/OR COUGH, TAB 0 Refills Metoprolol Tartrate (Metoprolol Tartrate) 50 Mg Tab 50 MG PO DAILY, #30 TAB 0 Refills Discontinued Medications: Aspirin (Aspirin) 81 Mg Chew 81 MG CHEW DAILY, TAB 0 Refills Cyrus Barnard MD Jun 03, 2017 13:03
== END 2017-06-03 14:31 | DRG 64 ==
LOC: NEPE 14:33 → NEDA 16:30 → NEPGCP 18:34 → OBSVTOIN 06-01 14:36 → N05A 06-01 15:24
PROVIDERS: ADMIT Hospitalist; ATTEND Hospitalist
DX: I63.522 Cerebral infarction due to unspecified occlusion or stenosis of left anterior cerebral artery (principal); G93.40 Encephalopathy, unspecified; I48.91 Unspecified atrial fibrillation; E86.0 Dehydration; R00.1 Bradycardia, unspecified; I67.2 Cerebral atherosclerosis; E78.5 Hyperlipidemia, unspecified; I25.10 Atherosclerotic heart disease of native coronary artery without angina pectoris; I10 Essential (primary) hypertension; N40.0 Benign prostatic hyperplasia without lower urinary tract symptoms; Z95.1 Presence of aortocoronary bypass graft; Z79.82 Long term (current) use of aspirin
CPT/HCPCS: 70450; 70544; 70548; 70551; 71045; 80053; 80061; 81001; 82607; 83036; 83735; 84443; 85025; 85610; 85652; 85730; 87804; 93005; 93306; 93880; 95819; 96360; A9579; G0378; G8987-GP; G8988-GP; G9162-GN; G9163-GN; G9164-GN; J0696; J1650; J7030